=== PATIENT | female | born 1985 | race Caucasian/White ===

== ENCOUNTER 2018-08-23 12:09 | Emergency (ER) | payer MEDICAID, OTHER ==
[~2018-08-23] VITALS: Ht 160 cm; Wt 81.6 kg
[2018-08-23 12:36] LABS: Basophils # (auto) 0 uL; Basophils % (auto) 0.5 % (0.0-2.0); Eosinophils # (auto) 0.1 uL; Hemoglobin 14.6 g/dL (12.2-16.2); Lymphocytes # (auto) 2.8 uL; Lymphocytes % (auto) 33.1 % (10.0-50.0); Mean Corpuscular Volume 85.3 fL (80.0-100.0); Monocytes # (auto) 0.6 uL; Monocytes % (auto) 7.4 % (0.0-12.0); Neutrophils # (auto) 4.8 uL; Nucleated Red Blood Cells % 0.1 %; Platelet Count (auto) 347 10^3/uL (140-450); Red Blood Cells 5.04 10^6/uL (4.0-5.20); White Blood Cell 8.3 10^3/uL (4.4-10.8)
[2018-08-23 12:50] LABS: Urine Bacteria NONE SEEN /hpf (None Seen); Urine Blood Negative /uL (Negative); Urine Mucus FEW (None Seen); Urine WBC 1 /hpf (0 - 5)
[2018-08-23 12:54] LABS: Alanine Aminotransferase 15 U/L (13-56); Albumin 3.8 g/dL (3.4-5.0); Anion Gap 10 (5-15); Aspartate Aminotransferase 10 U/L (15-37); Blood Urea Nitrogen 9 mg/dL (7-18); Calcium 8.5 mg/dL (8.5-10.1); Carbon Dioxide 24 mmol/L (21-32); Chloride 108 mmol/L (98-107); Glucose 92 mg/dL (74-106); Potassium 3.3 mmol/L (3.5-5.1); Sodium 142 mmol/L (136-145)
[2018-08-23 12:59] LABS: Alkaline Phosphatase 94 U/L (45-117); Bilirubin, Total 0.5 mg/dL (0.2-1.0); GFR African American 115 mL/min; GFR Non-African American 95 mL/min; Total Protein 7.8 g/dL (6.4-8.2)
[2018-08-23 13:09] LABS: Alcohol, Urine < 3.0 mg/dL (0-5); Amphetamine Screen, Urine NEGATIVE (NEGATIVE); Barbiturate Scree,Urine NEGATIVE (NEGATIVE); Benzodiazephine Screen, Urine NEGATIVE (NEGATIVE); Cannabinoid Screen, Urine NEGATIVE (NEGATIVE); Cocaine Screen, Urine NEGATIVE (NEGATIVE); Opiate Scree,Urine NEGATIVE (NEGATIVE); Phencyclidine Screen, Urine NEGATIVE (NEGATIVE)
[2018-08-23 16:58] LABS: INR 0.95 (0.9-1.15); Partial Thromboplastin Time 30.4 sec (23.78-33.04); Prothrombin Time 10.2 sec (9.27-12.13)
[2018-08-23 19:58] VITALS: BP 113/74
[2018-08-23] MEDS ORDERED: POTASSIUM CHL 20 Meq TABLET PO ONE (20:30)
== END 2018-08-23 20:47 | disposition home or self-care (01) ==
LOC: ER 12:09
DX: R07.89 Other chest pain (principal); F32.9 Major depressive disorder, single episode, unspecified; E87.6 Hypokalemia
CPT/HCPCS: 36415; 71046; 80053; 80307; 81001; 81025; 84484; 85025; 85379; 85610; 85730; 93005

== ENCOUNTER 2018-12-08 18:16 | Emergency (ER) | payer MEDICAID ==
[~2018-12-08] VITALS: Ht 160 cm; Wt 81.6 kg
[2018-12-08] MEDS ORDERED: SODIUM CHLORIDE 0.9% 1,000 ML IV ONE (22:30)
[2018-12-08] MEDS ORDERED: ACETAMINOPHEN/CODEINE#3 (300/30mg) TAB PO ONE (22:30)
[2018-12-08] MEDS ORDERED: CLINDAMYCIN 600MG IV 50 ML IV ONE (22:30)
[2018-12-08 22:32] VITALS: BP 129/90
== END 2018-12-09 00:53 | disposition home or self-care (01) ==
LOC: ER 18:21
DX: K04.7 Periapical abscess without sinus (principal)
CPT/HCPCS: 70486; 96365; 96366; 99284; J3490; J7030

== ENCOUNTER 2018-12-09 16:53 | Emergency (ER) | payer MEDICAID ==
[~2018-12-09] VITALS: Ht 160 cm; Wt 81.6 kg
[2018-12-09 17:13] VITALS: BP 110/80
[2018-12-09] MEDS ORDERED: cefTRIAXone SOD 1,000 MG VL IM ONE (18:45)
[2018-12-09] MEDS ORDERED: DexAMETHasone SOD PHOS 10MG/1ML VIAL INJ IM ONE (18:45)
[2018-12-09] MEDS ORDERED: ACETAMINOPHEN/CODEINE#3 (300/30mg) TAB PO ONE (18:45)
[2018-12-09] MEDS ORDERED: LIDOCAINE 1% HCL (LOCAL ANESTH.) INJ 20ML MDV IJ ONE (18:45)
== END 2018-12-09 19:28 | disposition home or self-care (01) ==
LOC: ER 16:53
DX: K04.7 Periapical abscess without sinus (principal); Z88.0 Allergy status to penicillin
CPT/HCPCS: 96372; 99283; J0696; J1100; J2001

== ENCOUNTER → 2020-05-18 | Outpatient (CLI) | payer OTHER | END | disposition home or self-care (01) | LOC: LAB 15:46 | PROVIDERS: ATTEND Preventive Medicine Preventive Medicine/Occupational Environmental Medicine | DX: Z02.1 Encounter for pre-employment examination (principal) | CPT/HCPCS: 36415; 86706; 86735; 86762; 86765; 86787 ==